=== PATIENT | female | born 1995 | race Caucasian/White ===

== ENCOUNTER → 2021-08-06 | Emergency (ER) | payer SELFPAY ==
[~2021-08-06] VITALS: Ht 147.3 cm; Wt 50.8 kg
[~2021-08-06] MED LIST: ALBU8.5H8 INH; ALBUTEROL FS 2.5 MG/3 ML VIAL.NEB CONTNEB ONE; ALBUTEROL FS 2.5 MG/3 ML VIAL.NEB ONE; IPRATROPIUM NEB FS 0.5 MG/2.5 ML AMPUL.NEB NEB ONE; IPRATROPIUM NEB FS 0.5 MG/2.5 ML AMPUL.NEB ONE; IV NS 0.9% 1,000 ML IV ONE; Magnesium 1GM/D5W 100ML PREMIX 100 ML IV ONE; Magnesium 1GM/D5W 100ML PREMIX 200 ML IV ONE; PRED50TA PO; TERBUTALINE SULFATE 1 MG/ML VIAL ONE; TERBUTALINE SULFATE 1 MG/ML VIAL SQ ONE; methylPREDNISolone SOD SUCC 125 MG/2ML VIAL IV ONE; methylPREDNISolone SOD SUCC 125 MG/2ML VIAL ONE
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
--- NOTE | 2021-08-06 03:37 | NUR ---
RT AT PT'S BEDSIDE FOR BREATHING TX
--- NOTE | 2021-08-06 06:11 | NUR ---
Patient discharged to home in stable condition. RX Written and verbal after care instructions given. Patient verbalizes understanding of instruction. PT ambulatory with a steady gait. PT in no resp. distress; resp even and non labored.
[2021-08-06 06:12] VITALS: BP 119/61
== END | disposition home or self-care (01) ==
LOC: ER 03:25
DX: J45.901 Unspecified asthma with (acute) exacerbation (principal); Z60.2 Problems related to living alone; Z79.899 Other long term (current) drug therapy
CPT/HCPCS: 94640 ×2; 96365; 96366; 96375; 99285; J2930; J3105; J3475 ×2; J7030